=== PATIENT | male | born 1965 | race Caucasian/White ===

== ENCOUNTER 2017-09-05 11:44 | Inpatient (IN) ==
[2017-09-05] MEDS ORDERED: ONDANSETRON 4 MG/2 ML VIAL ONE (13:19)
[2017-09-05] MEDS ORDERED: HYDROmorphone 2 MG/1 ML VIAL ONE (13:19)
[2017-09-05] MEDS ORDERED: HYDROmorphone 2 MG/1 ML VIAL IV STA (13:20)
[2017-09-05] MEDS ORDERED: ONDANSETRON 4 MG/2 ML VIAL IV STA (13:20)
[2017-09-05 13:24] LABS: Basophils # 0.1 10*3/uL (0.0-0.2); Basophils % 0.5 % (0.0-0.8); Eosinophils # 0.2 10*3/uL (0.0-0.87); Eosinophils % 1.7 % (0.00-10.9); Hematocrit 43.6 VOL% (42.0-52.0); Hemoglobin 15.3 GM/DL (14.0-18.0); Immature Granulocytes % 0.3 %; Immature Granulocytes Absolute 0.03 #; Lymphocytes # 2.2 10*3/uL (1.4-4.0); Lymphocytes % 21.3 % (21.2-54.2); Mean Corpuscular HGB Conc 35.1 GM/DL (32-36); Mean Corpuscular Hemoglobin 32 PG (27-34); Mean Corpuscular Volume 89.9 FL (87-102); Monocytes # 1.1 10*3/uL (0.11-0.8); Monocytes % 10.2 % (1.7-12.7); Neutrophils # 6.8 10*3/uL (1.4-7.4); Platelet Count 186 T/CUMM (130-400); Red Blood Count 4.85 MC/CUMM (3.8-5.5); Red Cell Distribution Width 12.4 % (9.3-17.3); White Blood Count 10.4 T/CUMM (4-12)
[2017-09-05 13:34] LABS: PT Patient Result 10.2 SECS; Partial Thromboplastin Time 30.5 SECS (0-40)
[2017-09-05 14:05] LABS: Bilirubin,Total 2.2 MG/DL (0.2-1.0); Calcium 8.9 MG/DL (8.5-10.1); Osmolality,Calculated 272.1 MOS/KG (273-304); Potassium 3.6 MMOL/L (3.5-5.1); Total Protein 7.8 G/DL (6.4-8.3)
[2017-09-05] MEDS ORDERED: ONDANSETRON 4 MG/2 ML VIAL IV PRN (14:39)
[2017-09-05] MEDS ORDERED: BISACODYL 5 MG TABLET PO PRN (14:39)
[2017-09-05] MEDS ORDERED: ACETAMINOPHEN 325 MG TABLET PO PRN (14:39)
[2017-09-05 15:28] LABS: Apearance,Urine CLEAR (Clear); Bilirubin,Urine Negative (Negative); Blood, Urine Small mg/dL (Negative); Glucose,Urine (UA) Negative (Negative); Ketones,Urine Negative (Negative); Mucus,Urine Occasional /LPF (Occasional); Nitrite,Urine Negative (Negative); Protein,Urine Negative; Squamous Epithelial Cell,Urine Occasional /HPF (0-10); Urine Color Yellow (Yellow); Urine Specific Gravity 1.041 (1.001-1.035); WBC,Urine <1 /HPF (0-6)
[2017-09-05] MEDS ORDERED: INFLUENZA VIRUS VACCINE 0.5 ML SYRINGE IM ONE (16:47)
[2017-09-05] MEDS: DEXTROSE 5% NACL 0.45% 1,000 ML IV SCH (17:04)
[2017-09-05] MEDS: KETOROLAC 15 MG/1 ML VIAL IV SCH ×2 (17:14→23:18)
[2017-09-05] MEDS: ALUMINUM/MAGNES/SIMETH MAX STR 30 ML UDCUP PO SCH ×2 (17:16→23:18)
[2017-09-05 18:43] LABS: Barbiturates Screen,Urine Negative (Negative); Benzodiazepines Screen,Urine Negative (Negative); Cannabinoid Screen,Urine Negative (Negative); Opiate Screen,Urine Positive (Negative); Phencyclidine Screen,Urine Negative (Negative)
[2017-09-05] MEDS: HYDROmorphone 2 MG/1 ML VIAL IV PRN (20:52)
[2017-09-05] MEDS: DOCUSATE SODIUM 100 MG CAPSULE PO SCH (23:18)
[2017-09-06] MEDS: DEXTROSE 5% NACL 0.45% 1,000 ML IV SCH ×3 (01:06→17:26)
[2017-09-06 09:55] LABS: Albumin 3.3 G/DL (3.4-5.0); Bilirubin,Total 1.3 MG/DL (0.2-1.0); Calcium 8.3 MG/DL (8.5-10.1); Magnesium 2.5 MG/DL (1.8-2.4); Osmolality,Calculated 273.8 MOS/KG (273-304); Total Protein 6.6 G/DL (6.4-8.3)
[2017-09-06 09:59] LABS: Basophils # 0.1 10*3/uL (0.0-0.2); Basophils % 0.8 % (0.0-0.8); Eosinophils # 0.5 10*3/uL (0.0-0.87); Eosinophils % 6.1 % (0.00-10.9); Hematocrit 42.5 VOL% (42.0-52.0); Hemoglobin 14.5 GM/DL (14.0-18.0); Immature Granulocytes % 0.5 %; Immature Granulocytes Absolute 0.04 #; Lymphocytes # 2.5 10*3/uL (1.4-4.0); Lymphocytes % 32.8 % (21.2-54.2); Mean Corpuscular HGB Conc 34.1 GM/DL (32-36); Mean Corpuscular Hemoglobin 32 PG (27-34); Mean Corpuscular Volume 92.2 FL (87-102); Mean Platelet Volume 12.8 FL (9.6-12.0); Monocytes # 0.8 10*3/uL (0.11-0.8); Monocytes % 10.9 % (1.7-12.7); Neutrophils # 3.7 10*3/uL (1.4-7.4); Neutrophils % 48.9 % (38.7-73.9); Platelet Count 166 T/CUMM (130-400); Red Blood Count 4.61 MC/CUMM (3.8-5.5); Red Cell Distribution Width 12.6 % (9.3-17.3); White Blood Count 7.6 T/CUMM (4-12)
[2017-09-06] MEDS: ALUMINUM/MAGNES/SIMETH MAX STR 30 ML UDCUP PO SCH ×4 (10:05→20:38)
[2017-09-06] MEDS: KETOROLAC 15 MG/1 ML VIAL IV SCH ×4 (10:06→20:38)
[2017-09-06] MEDS: PANTOPRAZOLE 40 MG TABLET PO SCH (10:06)
[2017-09-06] MEDS: DOCUSATE SODIUM 100 MG CAPSULE PO SCH ×2 (10:06→20:38)
[2017-09-06] MEDS: LIDOCAINE 5% PATCH TRANSDERM SCH (11:58)
[2017-09-07] MEDS: DEXTROSE 5% NACL 0.45% 1,000 ML IV SCH ×4 (00:59→19:43)
[2017-09-07] MEDS: HYDROmorphone 2 MG/1 ML VIAL IV PRN ×5 (03:01→23:14)
[2017-09-07] MEDS: KETOROLAC 15 MG/1 ML VIAL IV SCH ×4 (03:01→20:06)
[2017-09-07] MEDS ORDERED: BUPIVACAINE 0.5% 50 ML VIAL NERVEBLOCK ONE (04:27)
[2017-09-07] MEDS ORDERED: DEXAMETHASONE 10 MG/1 ML VIAL MISC INJ ONE ×2 (04:30→04:45)
[2017-09-07] MEDS: LIDOCAINE 5% PATCH TRANSDERM SCH (06:19)
[2017-09-07] MEDS: ALUMINUM/MAGNES/SIMETH MAX STR 30 ML UDCUP PO SCH ×4 (08:37→20:06)
[2017-09-07] MEDS: DOCUSATE SODIUM 100 MG CAPSULE PO SCH ×2 (08:49→20:06)
[2017-09-07] MEDS: PANTOPRAZOLE 40 MG TABLET PO SCH (08:49)
[2017-09-08] MEDS: KETOROLAC 15 MG/1 ML VIAL IV SCH ×2 (03:16→08:36)
[2017-09-08] MEDS: DEXTROSE 5% NACL 0.45% 1,000 ML IV SCH ×2 (03:21→10:28)
[2017-09-08] MEDS: HYDROmorphone 2 MG/1 ML VIAL IV PRN ×2 (03:33→08:32)
[2017-09-08] MEDS: LIDOCAINE 5% PATCH TRANSDERM SCH (05:57)
[2017-09-08] MEDS: ALUMINUM/MAGNES/SIMETH MAX STR 30 ML UDCUP PO SCH ×2 (08:30→14:27)
[2017-09-08] MEDS: DOCUSATE SODIUM 100 MG CAPSULE PO SCH (08:30)
[2017-09-08] MEDS: PANTOPRAZOLE 40 MG TABLET PO SCH (08:30)
[2017-09-08 11:46] VITALS: BP 120/70
== END 2017-09-08 12:15 | disposition home or self-care (01) | DRG 200 ==
LOC: N.ED 11:44 → N.EDINP 14:39 → N.3E 16:22
PROVIDERS: ADMIT Specialist; ATTEND Specialist

== ENCOUNTER 2017-09-28 23:27 | Observation (INO) ==
[2017-09-29] MEDS ORDERED: ONDANSETRON 4 MG/2 ML VIAL IV STA (00:26)
[2017-09-29] MEDS ORDERED: MORPHINE 2 MG/1 ML SYRINGE IV STA (00:26)
[2017-09-29] MEDS ORDERED: MORPHINE 2 MG/1 ML SYRINGE ONE (00:32)
[2017-09-29] MEDS ORDERED: ONDANSETRON 4 MG/2 ML VIAL ONE (00:32)
[2017-09-29 01:18] LABS: INR 0.9; PT Patient Result 9.8 SECS; Partial Thromboplastin Time 27.3 SECS (0-40)
[2017-09-29 01:20] LABS: Basophils # 0.1 10*3/uL (0.0-0.2); Basophils % 0.7 % (0.0-0.8); Eosinophils # 0.3 10*3/uL (0.0-0.87); Eosinophils % 3.2 % (0.00-10.9); Hematocrit 38.6 VOL% (42.0-52.0); Hemoglobin 13.1 GM/DL (14.0-18.0); Immature Granulocytes % 0.4 %; Immature Granulocytes Absolute 0.04 #; Lymphocytes # 2.7 10*3/uL (1.4-4.0); Mean Corpuscular HGB Conc 33.9 GM/DL (32-36); Mean Corpuscular Hemoglobin 31 PG (27-34); Mean Corpuscular Volume 92.1 FL (87-102); Mean Platelet Volume 12.4 FL (9.6-12.0); Monocytes % 9.2 % (1.7-12.7); Neutrophils # 6.6 10*3/uL (1.4-7.4); Neutrophils % 61.5 % (38.7-73.9); Platelet Count 231 T/CUMM (130-400); Red Blood Count 4.19 MC/CUMM (3.8-5.5); Red Cell Distribution Width 12.3 % (9.3-17.3); White Blood Count 10.7 T/CUMM (4-12)
[2017-09-29 01:38] LABS: Calcium 8.4 MG/DL (8.5-10.1); Osmolality,Calculated 279.5 MOS/KG (273-304); Potassium 4.5 MMOL/L (3.5-5.1)
[2017-09-29] MEDS ORDERED: PROMETHAZINE 25 MG/1 ML VIAL IM PRN (03:33)
[2017-09-29] MEDS ORDERED: ONDANSETRON 4 MG/2 ML VIAL IV PRN (03:33)
[2017-09-29] MEDS ORDERED: ACETAMINOPHEN 325 MG TABLET PO PRN (03:33)
[2017-09-29] MEDS: DEXTROSE 5% NACL 0.45% 1,000 ML IV SCH ×3 (03:55→21:26)
[2017-09-29] MEDS ORDERED: INFLUENZA VIRUS VACCINE 0.5 ML SYRINGE IM ONE (04:26)
[2017-09-29] MEDS: MORPHINE 2 MG/1 ML SYRINGE IV PRN ×3 (04:49→14:50)
[2017-09-29] MEDS: PANTOPRAZOLE 40 MG TABLET PO SCH (08:55)
[2017-09-30] MEDS: MORPHINE 2 MG/1 ML SYRINGE IV PRN ×5 (00:21→20:26)
[2017-09-30] MEDS: DEXTROSE 5% NACL 0.45% 1,000 ML IV SCH (04:39)
[2017-09-30 04:47] LABS: Basophils # 0.1 10*3/uL (0.0-0.2); Basophils % 0.7 % (0.0-0.8); Eosinophils # 0.3 10*3/uL (0.0-0.87); Eosinophils % 3.8 % (0.00-10.9); Hematocrit 28.6 VOL% (42.0-52.0); Immature Granulocytes % 0.3 %; Immature Granulocytes Absolute 0.03 #; Lymphocytes # 2.9 10*3/uL (1.4-4.0); Lymphocytes % 33.4 % (21.2-54.2); Mean Corpuscular HGB Conc 33.9 GM/DL (32-36); Mean Corpuscular Hemoglobin 32 PG (27-34); Mean Corpuscular Volume 93.2 FL (87-102); Monocytes # 0.8 10*3/uL (0.11-0.8); Monocytes % 9.4 % (1.7-12.7); Neutrophils # 4.5 10*3/uL (1.4-7.4); Neutrophils % 52.4 % (38.7-73.9); Platelet Count 183 T/CUMM (130-400); Red Blood Count 3.07 MC/CUMM (3.8-5.5); Red Cell Distribution Width 12.4 % (9.3-17.3); White Blood Count 8.6 T/CUMM (4-12)
[2017-09-30 05:09] LABS: Hemoglobin 9.7 GM/DL (14.0-18.0)
[2017-09-30] MEDS: PANTOPRAZOLE 40 MG TABLET PO SCH (08:38)
[2017-10-01] MEDS: MORPHINE 2 MG/1 ML SYRINGE IV PRN ×2 (02:00→07:40)
[2017-10-01 07:06] LABS: Basophils # 0.1 10*3/uL (0.0-0.2); Basophils % 0.7 % (0.0-0.8); Eosinophils # 0.5 10*3/uL (0.0-0.87); Eosinophils % 6.7 % (0.00-10.9); Hematocrit 28.1 VOL% (42.0-52.0); Hemoglobin 9.4 GM/DL (14.0-18.0); Immature Granulocytes % 0.7 %; Immature Granulocytes Absolute 0.05 #; Lymphocytes # 3.2 10*3/uL (1.4-4.0); Lymphocytes % 42.4 % (21.2-54.2); Mean Corpuscular HGB Conc 33.5 GM/DL (32-36); Mean Corpuscular Hemoglobin 31 PG (27-34); Mean Corpuscular Volume 92.4 FL (87-102); Mean Platelet Volume 12.9 FL (9.6-12.0); Monocytes # 0.8 10*3/uL (0.11-0.8); Monocytes % 10.3 % (1.7-12.7); Neutrophils # 2.9 10*3/uL (1.4-7.4); Neutrophils % 39.2 % (38.7-73.9); Platelet Count 206 T/CUMM (130-400); Red Blood Count 3.04 MC/CUMM (3.8-5.5); Red Cell Distribution Width 12.3 % (9.3-17.3); White Blood Count 7.5 T/CUMM (4-12)
[2017-10-01 07:28] LABS: Calcium 8.2 MG/DL (8.5-10.1); Potassium 4.4 MMOL/L (3.5-5.1)
[2017-10-01] MEDS: PANTOPRAZOLE 40 MG TABLET PO SCH (10:17)
[2017-10-01 12:59] VITALS: BP 149/93
== END 2017-10-01 14:00 | disposition home or self-care (01) ==
LOC: EDBD → EDUNIT# → N.ED 23:27 → N.EDINP 09-29 02:18 → INTOOBSV 09-29 02:18 → N.3E 09-29 02:56
PROVIDERS: ADMIT Surgery; ATTEND Surgery